=== PATIENT | female | born 1990 | race Caucasian/White ===

== ENCOUNTER 2020-02-17 14:16 | Emergency (ER) | payer MEDICAID, OTHER ==
[~2020-02-17] VITALS: Ht 175.3 cm; Wt 53.0 kg
[2020-02-17 14:25] VITALS: BP 139/100
--- NOTE | 2020-02-17 15:27 | PHYS DOC ---
Past History Past Medical History: Anxiety, Depression Past Surgical History: No Surgical History Additional Smoking Information: quite yesterday Alcohol Use: Rarely General Adult EDM: Chief Complaint: ANXIETY/PANIC ATTACK HPI: HPI: Patient is a 29-year-old female at approximately 1 months gestational age by LMP. Patient states she has a history of anxiety since his anxiety attack is no different than her previous ones. States she was just stressed out because of work. And is try to stop smoking because of her . Patient states she otherwise has been well. Review of Systems: Review of Systems: All other systems within normal limits except for as noted in the HPI Allergies: Allergies: Allergies Coded Allergies Type Severity Reaction Last Updated Verified No Known Drug Allergies 02/17/20 No Physical Exam: PE: Constitutional: Well developed, well nourished, no acute distress, non-toxic appearance. [] Anxious HENT: Normocephalic, atraumatic, bilateral external ears normal, oropharynx moist, no oral exudates, nose normal. [] Eyes: PERRLA, EOMI, conjunctiva normal, no discharge. [] Neck: Normal range of motion, no tenderness, supple, no stridor. [] Cardiovascular:Heart rate regular rhythm, no murmur [] Lungs & Thorax: Bilateral breath sounds clear to auscultation [] tachypneic Abdomen: Bowel sounds normal, soft, no tenderness, no masses, no pulsatile masses. [] Skin: Warm, dry, no erythema, no rash. [] Back: No tenderness, no CVA tenderness. [] Extremities: No tenderness, no cyanosis, no clubbing, ROM intact, no edema. [] Neurologic: Alert and oriented X 3, normal motor function, normal sensory function, no focal deficits noted. [] Psychologic: Affect normal, judgement normal, mood normal. [] Current Patient Data: Vital Signs: Vital Signs Date Time Temp Pulse Resp B/P (MAP) Pulse Ox O2 Delivery O2 Flow Rate FiO2 02/17/20 14:25 99.3 129 32 139/100 (113) 99 Room Air EKG: EKG: [] Radiology/Procedures: Radiology/Procedures: [] Heart Score: Risk Factors: Risk Factors: DM, Current or recent (<one month) smoker, HTN, HLP, family history of CAD, obesity. Risk Scores: Score 0 - 3: 2.5% MACE over next 6 weeks - Discharge Home Score 4 - 6: 20.3% MACE over next 6 weeks - Admit for Clinical Observation Score 7 - 10: 72.7% MACE over next 6 weeks - Early Invasive Strategies Course & Med Decision Making: Course & Med Decision Making Discussed patient's treatment options. Patient relaxed after hearing heart rate (beats per minute). Discussed as needed medications to follow-up for counseling [] Dragon Disclaimer: Dragon Disclaimer: This electronic medical record was generated, in whole or in part, using a voice recognition dictation system. Departure Departure: Impression: Primary Impression: Anxiety Disposition: 01 DC HOME SELF CARE/HOMELESS Condition: IMPROVED Referrals: PCPMANUEL (PCP) Patient Instructions: Anxiety and Panic Attacks Additional Instructions: [facility] Address: [address] [place] [id number] GALE BURRELL MD Feb 17, 2020 15:27
[2020-02-17] MEDS ORDERED: ALPR0.2565 PO (15:29)
== END 2020-02-17 15:46 | disposition home or self-care (01) ==
LOC: ER 14:16
DX: O26.891 Other specified pregnancy related conditions, first trimester (principal); F41.9 Anxiety disorder, unspecified; F32.9 Major depressive disorder, single episode, unspecified; F17.200 Nicotine dependence, unspecified, uncomplicated; Z3A.01 Less than 8 weeks gestation of pregnancy
CPT/HCPCS: 99284